=== PATIENT | female | born 1960 | race African-American/Black ===

== ENCOUNTER → 2021-01-22 | Outpatient (CLI) | payer MEDICARE ==
--- NOTE | 2021-01-25 12:24 | RAD ---
EXAM: Bilateral digital screening mammogram with tomosynthesis. HISTORY: 60-year-old female presents for screening mammography. TECHNIQUE: Full-field digital craniocaudal and mediolateral oblique 2D and 3D tomosynthesis images of both breasts are obtained for evaluation. Computer aided detection was applied. COMPARISON: 08/02/2019 BREAST PARENCHYMAL DENSITY: Level B - Scattered fibroglandular densities. FINDINGS: There are small circumscribed nodular densities within the inferior aspect of the right dinah ast at anterior and mid depth. These are seen at approximately the 5:00 and 6:00 positions approximat carleen 4-5 cm from the nipple and 6:00 position approximately 3 cm from the nipple. There are additional areas of nodularity which are stable in appearance. There is no suspicious calcification or architec tural distortion. IMPRESSION: BI-RADS Category 0: Incomplete. Additional imaging needed. RECOMMENDATION: Further evaluation with a right breast sonogram is recommended to assess small circum scribed nodular densities described above. If your mammogram demonstrates that you have dense breast tissue, which could hide abnormalities, and if you have other risk factors for breast cancer that have been identified, you might benefit from s upplemental screening tests that may be suggested by your ordering physician. Dense breast tissue, i n and of itself, is a relatively common condition. This information is not provided to cause undue c oncern, but rather to raise your awareness and to promote discussion with your physician regarding th e presence of other risk factors, in addition to dense breast tissue. A report of your mammography re sults will be sent to you and your physician. You should contact your physician if you have any ques tions or concerns regarding this report. Mammography is a sensitive method for finding small breast cancers, but it does not detect them all a nd is not a substitute for careful clinical examination. A negative mammogram does not negate a clin ically suspicious finding and should not result in delay in biopsying a clinically suspicious abnorma lity. PQRS compliance statement - Patient information was entered into a reminder system with a target due date for the next mammogram. "Our facility is accredited by the [employer] Mammography [employer]." Electronically signed by: Paty De La Cruz MD (01/25/2021 12:21 PM) [id number]
== END ==
LOC: MAMMO 08:17
PROVIDERS: ATTEND Family Medicine
DX: Z12.31 Encounter for screening mammogram for malignant neoplasm of breast (principal)
CPT/HCPCS: 77063; 77067

== ENCOUNTER → 2021-02-09 | Outpatient (CLI) | payer MEDICARE ==
--- NOTE | 2021-02-09 13:36 | RAD ---
EXAM: Right breast ultrasound. HISTORY: Nodules on mammographic screening. Sonography is requested. COMPARISON: 01/22/2021, 08/02/2019. FINDINGS: Sonographic evaluation of the right breast and axilla was performed at sites of concern. At the 5:00 position 4 cm from the nipple, an oval hypoechoic nodule measures 8 x 4 mm and is consist ent with benign complicated cyst. At the 6:00 position 3 cm from the nipple, another complicated cyst measures 5 x 3 x 3 mm. A dilated subareolar duct contains no clear intraductal mass. There is no liz picious sonographic finding. Images of the right axilla reveal a 2.2 x 0.9 cm nodule with a 2.9 mm cortex. There are no clearly pa thologic lymph nodes. IMPRESSION: 1. BI-RADS Category 3: Probably benign findings. 2. Recommend six-month follow-up right diagnostic mammography to confirm stability of small nodules i nferiorly detectable on tomosynthesis, likely corresponding with small corticated cysts sonographical ly. Electronically signed by: Robert Mckee MD (02/09/2021 1:33 PM) [id number]
== END ==
LOC: US 12:50
PROVIDERS: ATTEND Family Medicine
DX: R92.2 Inconclusive mammogram (principal)
CPT/HCPCS: 76641

== ENCOUNTER 2021-10-07 17:33 | Emergency (ER) | payer OTHER, MEDICARE ==
[~2021-10-07] VITALS: Ht 172.7 cm; Wt 77.2 kg
[2021-10-07] MEDS ORDERED: LIDOCAINE (700MG/PATCH) PATCH. TD SCH (18:45)
[2021-10-07] MEDS ORDERED: KETOROLAC 60 MG/2 ML VIAL. IM ONE (18:45)
[2021-10-07] MEDS ORDERED: ORPHENADRINE CITRATE 60 MG/2 ML VIAL. IM ONE (18:45)
[2021-10-07] MEDS ORDERED: ORPH-16 PO (18:59)
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
[2021-10-07 19:15] VITALS: BP 114/80
[2021-10-07] MEDS ORDERED: PATCH REMOVAL. MC SCH (21:00)
== END 2021-10-07 19:15 | disposition home or self-care (01) ==
LOC: ER 17:33
DX: S16.1XXA Strain of muscle, fascia and tendon at neck level, initial encounter (principal); E11.9 Type 2 diabetes mellitus without complications; Z88.0 Allergy status to penicillin; Z88.2 Allergy status to sulfonamides; V43.52XA Car driver injured in collision with other type car in traffic accident, initial encounter; Y93.I9 Activity, other involving external motion; Y92.89 Other specified places as the place of occurrence of the external cause; Y99.8 Other external cause status
CPT/HCPCS: 96372; 99284; J1885; J2360

== ENCOUNTER → 2021-10-12 | Outpatient (CLI) | payer OTHER, MEDICARE ==
[2021-10-07 19:15] VITALS: BP 114/80
[~2021-10-12] MED LIST: ORPH-16 PO
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
== END ==
LOC: RAD 10:34
PROVIDERS: ATTEND Family Medicine
DX: M47.812 Spondylosis without myelopathy or radiculopathy, cervical region (principal); M19.012 Primary osteoarthritis, left shoulder; M48.02 Spinal stenosis, cervical region; M48.8X2 Other specified spondylopathies, cervical region; M75.82 Other shoulder lesions, left shoulder
CPT/HCPCS: 72040; 73030

== ENCOUNTER → 2021-10-21 | Outpatient (CLI) | payer MEDICARE ==
[2021-10-07 19:15] VITALS: BP 114/80
--- NOTE | 2021-10-21 14:54 | RAD ---
EXAM: Right breast digital diagnostic mammogram with tomosynthesis; right breast sonogram. HISTORY: 61-year-old female presents for follow-up evaluation of findings within the right breast dem onstrated on a prior mammogram dated 01/22/2021 and sonogram dated 02/09/2021. TECHNIQUE: Full-field digital craniocaudal and mediolateral oblique 2D and 3D tomosynthesis images of the right breast are obtained for evaluation. Computer aided detection was applied. Sonographic imag ing of the right breast targeted to sites of prior findings was performed. COMPARISON: 02/09/2021, 01/22/2021, 08/02/2019 BREAST PARENCHYMAL DENSITY: Level B - Scattered fibroglandular densities. FINDINGS: There is stable circumscribed nodular densities within the right breast, primarily at the 5 :00 and 6:00 positions at mid depth. There is no new suspicious mass, calcification or distortion. Sonographic imaging of the right breast demonstrates a stable lobulated hypoechoic lesion with internal affairs commander al echoes measuring 8 mm at the 5:00 position 4 cm from the nipple, the appearance of which favors a complicated cyst. There is a stable 5 mm suspected cluster of cysts at the 6:00 position 3 cm from th e nipple. There are dilated ducts within the retroareolar aspect of the right breast. No intraductal lesion is seen. There are benign-appearing axillary lymph nodes. IMPRESSION: 1. Stable suspected benign cystic lesions at the 5:00 and 6:00 positions of the right breast, describ ed above. No new suspicious sonographic or mammographic finding. 2. BI-RADS Category 3: Probably benign finding(s). Short term follow up with a diagnostic mammogram a nd right breast sonogram in 3-4 months is recommended to confirm a year of stability and correspond w ith the previously established bilateral screening mammography interval. If your mammogram demonstrates that you have dense breast tissue, which could hide abnormalities, and if you have other risk factors for breast cancer that have been identified, you might benefit from s upplemental screening tests that may be suggested by your ordering physician. Dense breast tissue, i n and of itself, is a relatively common condition. This information is not provided to cause undue c oncern, but rather to raise your awareness and to promote discussion with your physician regarding th e presence of other risk factors, in addition to dense breast tissue. A report of your mammography re sults will be sent to you and your physician. You should contact your physician if you have any ques tions or concerns regarding this report. Mammography is a sensitive method for finding small breast cancers, but it does not detect them all a nd is not a substitute for careful clinical examination. A negative mammogram does not negate a clin ically suspicious finding and should not result in delay in biopsying a clinically suspicious abnorma lity. PQRS compliance statement - Patient information was entered into a reminder system with a target due date for the next mammogram. "Our facility is accredited by the [employer] Mammography Program." Electronically signed by: Paty De La Cruz MD (10/21/2021 2:52 PM) [id number]
== END ==
LOC: MAMMO 13:25
PROVIDERS: ATTEND Family Medicine
DX: N64.89 Other specified disorders of breast (principal); R92.2 Inconclusive mammogram
CPT/HCPCS: 76642; 77065; G0279; 77061